=== PATIENT | male | born 1990 | race Caucasian/White ===

== ENCOUNTER → 2016-11-11 | Day surgery (SDC) | payer OTHER ==
[2016-11-01 15:06] VITALS: Ht 176.5 cm; Wt 104.5 kg
[~2016-11-11] VITALS: Ht 176.5 cm; Wt 104.5 kg
[~2016-11-11] MED LIST: ASPI325T45 PO; ATROPINE SULFATE 0.1 MG/ML 5ML SYR IV PRN; BUPIVACAINE/EPINEPHRINE 0.5% MPF 1:200,000 30 ML VIAL ONE; DEXAMETHASONE SOD INJ 4 MG/ML VIAL ONE; EpHEDrine SULFATE INJ 50 MG/ML AMP IV PRN; FENTANYL CITRATE INJ 50 MCG/1 ML 2 ML VIAL IV PRN; FENTANYL CITRATE INJ 50 MCG/1 ML 2 ML VIAL ONE; LACTATED RINGER'S 1000ML 1,000 ML IV SCH; LIDOCAINE HCL 1% 20 ML VIAL ONE; LIDOCAINE HCL 2% 2 ML VIAL (20MG/ML) ONE; MIDAZOLAM HCL 1 MG/ML 2ML VIAL ONE; MoRPHine SULFATE 2 MG/ML CARP IV PRN; MoRPHine SULFATE 4 MG/ML 1 ML CARP\\VIAL IV PRN; ONDANSETRON INJ 2 MG/ML 2 ML VIAL IV PRN; ONDANSETRON INJ 2 MG/ML 2 ML VIAL ONE; OXYC-57 PO; OXYCODONE/ACETAMINOPHEN 5-325 TAB PO PRN; PROPOFOL IV EMULSION 10 MG/ML 20 ML VIAL IV ONE; SULF800T23 PO
[2016-11-11] MEDS: CLINDAMYCIN PHOS 150 MG/ML 2 ML VIAL IV SCH ×2 (09:20→09:22)
--- NOTE | 2016-11-11 09:28 | History & Physical Bridge - [place] ---
H&P Re-Evaluation Bridge Note: I have examined the patient, reviewed the History & Physical and in the interval since the performance of the History & Physical I have noted the following changes of clinical significance: No changes noted
--- NOTE | 2016-11-11 10:38 | [facility] Post Operative Brief Note ---
Immediate Operative Summary Operative Date Nov 11, 2016. Pre-Operative Diagnosis Left Lower Extremity Hematoma/Seroma Post-Operative Diagnosis same Procedure(s) Performed Left Lower Extremity Irrigation And Debridement Surgeon Dr. Colin Heaton Tank Builder And Erector Surgeon(s) Kendrick Garcia PA-C, Lio Vasquez, MSIII Estimated Blood Loss 12 Findings Scar Tissue, min. fluid. Fluids (cc crystalloids) 1200 Specimens A.C&S Left Lower Extremity--Culturette--C&S, Gram Stain,White Count B. C&S Left Lower Extremity--Syringe--C&S,Gram Stain, White Count C. Tissue Culture Left Lower Extremity--C&S, Gram Stain, White Count Drains n/a Anesthesia Local + sedation Complication(s) None Disposition Recovery Room / PACU (Stable)
--- NOTE | 2016-11-11 10:39 | [facility] Operative Report ---
Operative Report Operative Date Nov 11, 2016. Pre-Operative Diagnosis Left Lower Extremity Hematoma/Seroma Post-Operative Diagnosis same Procedure(s) Performed Left Lower Extremity Irrigation And Debridement Surgeon Dr. Colin Heaton Highway Maintenance Supervisor Surgeon(s) Kendrick Garcia PA-C, CYNDI Beaver (No fellow avial) Estimated Blood Loss 12 Findings Scar tissue and min. fluid. Fluids (cc crystalloids) 1200 Specimens A.C&S Left Lower Extremity--Culturette--C&S, Gram Stain,White Count B. C&S Left Lower Extremity--Syringe--C&S,Gram Stain, White Count C. Tissue Culture Left Lower Extremity--C&S, Gram Stain, White Count Drains n/a Anesthesia Local + sedation Complication(s) None Disposition Recovery Room / PACU (Stable) Implants n/a Indications The patient is a pleasant 26-year-old male, who has a chronic painful, reaccumulating seroma/hematoma of the left lower leg. The patient understands the risks of surgery, which include but are not limited to: bleeding, infection , re-operation, damage to nerves and arteries, continued pain, reaccumulation, possible need for repeat surgery, and DVT. The patient understands all of these instructions and explanations, all of their questions have been satisfactorily addressed. The patient has elected to proceed with surgery and the informed consent was signed. Description of Procedure The patient was taken to the Operating Room and placed in the supine position on the operating table. After local sedation had taken an appropriate affect, a multidisciplinary time-out was performed identifying my initials on the left limb as the correct and operative limb. 600 mg of clindamycin were given prior to any incision being made. The left leg was prepped and draped in the usual Orthopaedic sterile fashion. The patient's medial calf swelling and prominence was identified and a 5 cm incision was marked over this area of concern. The skin edges were injected with a 50:50 mixture of 1% lidocaine and 0.5 % Marcaine with epi for a total of 10cc. the incision was made with the scalpel and significant scar tissue was noted immediately below the subcutaneous and within the subcutaneous fat. There was small amount of fluid, but no discrete pocket. The incision was carried down through the skin and subcutaneous fat, scar tissue to the level of the fascia. Cultures were obtained. The scar tissue was bluntly dissected and sharply excised with scalpel and electrocautery. Curettes were also used to remove any scar and freshen up the underlying soft tissues. The wound was copiously irrigated with 6 L normal saline. Following irrigation and debridement there was healthy viable red beefy tissue that was bleeding. The skin were closed with 3-0 Prolene. The wound was covered Xerofoam, 4 x 4's , ABDs, sterile cast padding, and an BETHANY bandaging and a compressive dressing. The sponge and needle counts were correct. POST-OP: Patient will be weightbearing as tolerated. Prophylactically he was placed on Bactrim DS for 5 days. He will follow-up with Dr. Heaton in 7-10 days. I attest to the content of the Intraoperative Record and any orders documented therein. Any exceptions are noted below.
--- NOTE | 2016-11-11 10:53 | [facility] Operative Report ---
Operative Report Operative Date Nov 11, 2016. Pre-Operative Diagnosis Left Lower Extremity Hematoma/Seroma Post-Operative Diagnosis same Procedure(s) Performed Left Lower Extremity Irrigation And Debridement Surgeon Dr. Colin Heaton Campground Cleaning Attendant Surgeon(s) Kendrick Garcia PA-C, Lio Vasquez, MSIII Estimated Blood Loss 12 Findings same Fluids (cc crystalloids) 1200 Specimens A.C&S Left Lower Extremity--Culturette--C&S, Gram Stain,White Count B. C&S Left Lower Extremity--Syringe--C&S,Gram Stain, White Count C. Tissue Culture Left Lower Extremity--C&S, Gram Stain, White Count Drains none Anesthesia sedation Complication(s) None Disposition Recovery Room / PACU Implants none Indications continued swelling a injury site of left lower extremity, MRI obtained, conservative treatments failed, surgery recommended, consents signed. Description of Procedure taken to the OR, prepped and draped, I was present the entire case, please see Dr. Heaton's op note for further detail I attest to the content of the Intraoperative Record and any orders documented therein. Any exceptions are noted below.
[2016-11-11 10:56] VITALS: TEMP 36.5
--- NOTE | 2016-11-11 10:56 | Discharge Instructions-SurgCtr ---
Discharge Instructions Visit Reason for Visit: Left Lower Leg Hematoma/Seroma Discharge Discharge Diagnosis / Problem: s/p left lower extremity I&D Discharge Goals Goal(s): Decrease discomfort, Improve function, Increase independence Activity Recommendations Activity Limitations: as noted below Lifting Limitations: no more than 10 pounds Exercise/Sports Limitations: none May Resume Sexual Activity: when tolerated Shower/Bathe: keep incision dry Driving or Machine Use: once no longer using narcotic pain medication Weightbearing Status: Left weightbearing (as tolerated) Anesthesia . Post Anesthesia Instructions: If you have had General Anesthesia or IV Sedation: * Do not drive today. * Resume driving when surgeon permits. * Do not make important decisions or sign legal documents today. * Call surgeon for: 1. Temperature elevations greater than 101 degrees F. 2. Uncontrollable pain. 3. Excessive bleeding. 4. Persistent nausea and vomiting. 5. Medication intolerance (nausea, vomiting or rash). * For nausea and vomiting use only clear liquids such as: tea, soda, bouillon until nausea subsides, then gradually increase diet as tolerated. * If you have any concerns or questions, call your surgeon's office. If physician is unavailable and it is an emergency, call 911 or go to the nearest emergency room. . Instructions / Follow-Up Instructions / Follow-Up DIET: * Resume previous diet. MEDICATIONS: * Please take your prescriptions as instructed at your pre-op appointment and/ or see medication discharge instructions listed above. * If concerns develop, call your physician's office at . SPECIAL CARE INSTRUCTIONS: * Ice/Elevate as instructed. * Keep dressing clean, dry, intact. * Your surgical extremity may be discolored due to prepping agents used on the skin. A bluish-green tint is a normal variant and should not cause alarm. Call your doctor at [phone] if: * Temperature above 101 degrees * Pain not relieved by pain medicine ordered * There is increased drainage or redness from any incision * You have any unanswered questions, problems or concerns. FOLLOW UP VISIT: * If not already scheduled, please call the office at to schedule a follow-up appointment. Diet Recommendations Home Diet: resume previous diet Procedures Procedures Performed: Left Lower Extremity Irrigation And Debridement Pending Studies Studies pending at discharge: yes List of pending studies: left lower extremity cultures and sensitivity, aerobic/anaerobic, gram stain, white count Medical Emergencies . Who to Call and When: Medical Emergencies: If at any time you feel your situation is an emergency, please call 911 immediately. . Non-Emergent Contact Non-Emergency issues call your: Primary Care Provider . . "Provider Documentation" section prepared by Kendrick Garcia. PA Drug Monitoring Program Search Results: no issues identified
--- NOTE | 2016-11-11 11:02 | Anesthesia Progress Nt - [facility] ---
Anesthesia Post Op Note Date & Time Nov 11, 2016 at 11:01 Vital Signs Pain Intensity: 2 Vital Signs Past 12 Hours Date Time Temp Pulse Resp B/P Pulse Ox O2 Delivery O2 Flow Rate FiO2 11/11/16 10:56 36.5 18 111/71 97 Room Air 11/11/16 08:05 36.7 85 16 137/80 96 Room Air Notes Mental Status: alert / awake / arousable, participated in evaluation Pt Amnestic to Procedure: Yes Nausea / Vomiting: adequately controlled Pain: adequately controlled Airway Patency, RR, SpO2: stable & adequate BP & HR: stable & adequate Hydration State: stable & adequate Anesthetic Complications: no major complications apparent
[2016-11-11 11:30] VITALS: BP 115/81; PULSE 80; O2SAT 97
== END | disposition home or self-care (01) ==
LOC: X.SURG 07:53
PROVIDERS: ATTEND Orthopaedic Surgery Sports Medicine
DX: S80.12XA Contusion of left lower leg, initial encounter (principal); W17.89XA Other fall from one level to another, initial encounter; Y92.89 Other specified places as the place of occurrence of the external cause

== ENCOUNTER → 2017-06-05 | Outpatient (CLI) | payer OTHER ==
[~2017-06-05] MED LIST changes: -ATROPINE SULFATE 0.1 MG/ML 5ML SYR IV PRN; -BUPIVACAINE/EPINEPHRINE 0.5% MPF 1:200,000 30 ML VIAL ONE; -DEXAMETHASONE SOD INJ 4 MG/ML VIAL ONE; -EpHEDrine SULFATE INJ 50 MG/ML AMP IV PRN; -FENTANYL CITRATE INJ 50 MCG/1 ML 2 ML VIAL IV PRN; -FENTANYL CITRATE INJ 50 MCG/1 ML 2 ML VIAL ONE; -LACTATED RINGER'S 1000ML 1,000 ML IV SCH; -LIDOCAINE HCL 1% 20 ML VIAL ONE; -LIDOCAINE HCL 2% 2 ML VIAL (20MG/ML) ONE; -MIDAZOLAM HCL 1 MG/ML 2ML VIAL ONE; -MoRPHine SULFATE 2 MG/ML CARP IV PRN; -MoRPHine SULFATE 4 MG/ML 1 ML CARP\\VIAL IV PRN; -ONDANSETRON INJ 2 MG/ML 2 ML VIAL IV PRN; -ONDANSETRON INJ 2 MG/ML 2 ML VIAL ONE; -OXYCODONE/ACETAMINOPHEN 5-325 TAB PO PRN; -PROPOFOL IV EMULSION 10 MG/ML 20 ML VIAL IV ONE
== END | disposition home or self-care (01) ==
LOC: C.RDSM 11:57
PROVIDERS: ATTEND Orthopaedic Surgery Sports Medicine
DX: M79.662 Pain in left lower leg (principal)

== ENCOUNTER 2017-06-06 13:04 | Inpatient (IN) | payer OTHER ==
[~2017-06-06] VITALS: Ht 176.5 cm; Wt 99.8 kg
[~2017-06-06 13:04] MED LIST changes: -OXYC-57 PO; -SULF800T23 PO
[2017-06-06] MEDS ORDERED: D5W AND 1/2NSS 1,000 ML IV SCH (13:20)
[2017-06-06] MEDS ORDERED: OXYCODONE/ACETAMINOPHEN 5-325 TAB PO PRN (13:30)
[2017-06-06] MEDS ORDERED: ONDANSETRON INJ 2 MG/ML 2 ML VIAL IV PRN ×3 (13:30→18:15)
[2017-06-06] MEDS ORDERED: ACETAMINOPHEN 325 MG TAB PO PRN (13:30)
--- NOTE | 2017-06-06 13:45 | History and Physical ---
History & Physical Date & Time of Service: Jun 06, 2017 at 13:26 Chief Complaint: Left Tibial Infection Primary Care Physician: No Doctor, Assigned History of Present Illness Source: patient Patient is a 26 year old male, who was seen and evaluated by Dr. Heaton on for left leg tibial swelling and pain. He underwent an aspiration, cultures obtained and sent to lab. He called in to the office today with worsening pain , swelling, redness and chills. He was instructed to come to the office immediately. He was seen and evaluated by Dr. Heaton. His symptoms returned overnight and the swelling had worsened. It was recommended for a direct admission to undergo and Incision and drainage of his left tibia later today. He did have pizza around 11 am this morning. He denies fever or chills. States that he does have some pain, denies pain or swelling anywhere else. States that this stated on Friday and has progressively worsened each day. He was prescribed antibiotics yesterday, but he wasn't able to pick them up yet and hasn't started them. Due to his worsening symptoms, it was decided that we would admit for an Incision and drainage later today. He will be kept NPO. Social History Smoking Status: Never Smoker Smokeless Tobacco Use: No Alcohol Use: socially Drug Use: none Marital Status: single Housing status: lives with roommate Occupational Status: employed (working on his [employer]) Allergies Coded Allergies: Cefaclor (Verified Allergy, Unknown, RASH, 11/11/16) Home Medications Scheduled Aspirin (Aspirin), 325 MG PO Q12 Review of Systems Constitutional: + chills, No fever, No weight loss Eyes: No worsening of vision ENT: No hearing loss, No sore throat, No dental problems Respiratory: No cough, No sputum, No wheezing, No shortness of breath Cardiovascular: No chest pain, No edema, No palpitations Abdomen: No pain, No nausea, No vomiting, No diarrhea, No constipation Musculoskeletal: + swelling, + calf pain Genitourinary - Male: No hematuria, No dysuria, No urinary frequency, No urinary retention, No urinary incontinence Neurologic: No memory loss, No numbness/tingling Endocrine: No fatigue Hematologic / Lymphatic: No abnormal bleeding/bruising, No clotting problems Integumentary: No rash, No itch Physical Exam General Appearance: WD/WN, no apparent distress Head: normocephalic, atraumatic Eyes: normal inspection, PERRL, EOMI ENT: normal ENT inspection, hearing grossly normal, TMs normal Neck: supple, no carotid bruits, trachea midline Respiratory/Chest: chest non-tender, lungs clear, normal breath sounds, no respiratory distress, no accessory muscle use Cardiovascular: regular rate, rhythm, no edema, normal peripheral pulses Abdomen/GI: normal bowel sounds, non tender, soft Extremities/Musculoskelatal: no calf tenderness, normal capillary refill, normal range of motion, + pertinent finding (localized swelling, erythema, swelling left anterior medial aspect left tibia. Full knee and ankle ROM. tender to palpation. Mild fluctuance. No ecchymosis. NO skin breakdown. Previous aspiration site noted. Ambulates normal with no assistive device, mild distal edema.) Neurologic/Psych: no motor/sensory deficits, alert, normal mood/affect, oriented x 3 Skin: normal color, warm/dry, no rash Diagnostics Laboratory Results CBC normal from 06/05/17 ESR 12 CRP > 15.0 preliminary culture results show 2+ presumptive staph aureus Impression Assessment and Plan Assessment: Infection left tibia Plan: Admit Plan for Incision and drainage left tibia today with Dr. Heaton. Made NPO. Will put on IV Vanco after intra-operative cultures obtained. Teds/foot pumps on RLE Activity as tolerated, WBAT LLE ICe and elevate as needed for pain/swelling Informed consent obtained by Dr. Heaton. Risks/complications discussed. Plan for home at discharge ID consult post operatively Level of Care Med/Surg VTE Prophylaxis VTE Risk Assessment Done? Y/N: No
[2017-06-06 15:09] VITALS: BP 115/73; PULSE 59; TEMP 36.8; O2SAT 98
[2017-06-06] MEDS ORDERED: BUPIVACAINE 0.5 % 5 MG/1 ML MPF 30ML VIAL ONE (15:26)
[2017-06-06] MEDS ORDERED: LIDOCAINE/EPINEPHRINE 1% 20 ML VIAL ONE (15:26)
[2017-06-06] MEDS ORDERED: BACITRACIN 50000 UNIT VIAL ONE (15:54)
[2017-06-06] MEDS ORDERED: MIDAZOLAM HCL 1 MG/ML 2ML VIAL ONE (17:06)
[2017-06-06] MEDS ORDERED: FENTANYL CITRATE INJ 50 MCG/1 ML 2 ML VIAL ONE ×2 (17:07→17:14)
[2017-06-06] MEDS ORDERED: POVIDONE-IODINE OP SOLN 30 ML BTL ONE (17:29)
[2017-06-06] MEDS ORDERED: VANCOMYCIN INJ 1,500 MG in SODIUM CHLORIDE 0.9% 500ML 500 ML IV SCH (17:30)
[2017-06-06] MEDS ORDERED: HYDROmorphone INJ 2 MG/ML SYR/VIAL ONE (17:35)
[2017-06-06] MEDS ORDERED: MoRPHine SULFATE 2 MG/ML CARP IV PRN (17:45)
[2017-06-06] MEDS ORDERED: OXYCODONE HCL IR 5 MG TAB (IMMEDIATE RELEASE) PO PRN (17:45)
[2017-06-06] MEDS ORDERED: ALUMINUM/MAGNESIUM/SIMETH (MAALOX MAX) 30 ML UDC PO PRN (17:45)
[2017-06-06] MEDS ORDERED: METOCLOPRAMIDE HCL INJ 5 MG/ML 2 ML VIAL IV PRN (17:45)
[2017-06-06] MEDS ORDERED: PROMETHAZINE HCL INJ 12.5 MG in SODIUM CHLORIDE 0.9% 50ML 50 ML IV PRN (18:15)
[2017-06-06] MEDS ORDERED: EpHEDrine SULFATE INJ 50 MG/ML AMP IV PRN (18:15)
[2017-06-06] MEDS ORDERED: VANCOMYCIN CONSULT ACTIVE PRN (18:15)
[2017-06-06] MEDS ORDERED: NALOXONE HCL 0.4 MG/1 ML VIAL/CARP IV PRN (18:15)
[2017-06-06] MEDS ORDERED: ATROPINE SULFATE 0.1 MG/ML 5ML SYR IV PRN (18:15)
[2017-06-06] MEDS ORDERED: FLUMAZENIL 0.1 MG/1 ML 10 ML VIAL IV PRN (18:15)
[2017-06-06] MEDS ORDERED: HYDROmorphone INJ 1 MG/ML SYR IV PRN (18:15)
--- NOTE | 2017-06-06 18:52 | [facility] Operative Report ---
Operative Report Operative Date Jun 06, 2017. Pre-Operative Diagnosis Soft tissue Infection, Left Lower Leg Post-Operative Diagnosis same as preop Procedure(s) Performed Irrigation and Debridement Left Lower Leg Surgeon Robert Heaton MD Senior Functional Analyst Surgeon(s) Otis Thomas MD Estimated Blood Loss 15mL Findings Large pocket of purulent fluid subcutaneous to the level of the periosteum. No apparent cortical breach of the Tibia. Fluids 1000 Specimens Microbiology: 1. Left leg gram stain, culture and sensitivity, aerobic and anaerobic. Permanent: A. Soft tissue left lower leg Drains n/a Anesthesia GET Complication(s) None Disposition Recovery Room / PACU (Stable) Indications The patient he is a 26-year-old male who has had chronic swelling and increased erythema of the left lower leg that was aspirated yesterday and through Gram stain was noted to have gram-positive cocci. The patient had undergone a previous I&D of the left lower leg roughly 8 months ago for a hematoma/seroma. Despite the recent aspiration the erythema has worsened as well as the swelling. The patient was admitted to the hospital for IV antibiotics and an irrigation and debridement of the left lower leg. The patient understands the risks of surgery, which include but are not limited to: bleeding, infection, re- operation, damage to nerves and arteries, continued pain and DVT. The patient understands all of these instructions and explanations, all of their questions have been satisfactorily addressed. The patient has elected to proceed with surgery and the informed consent was signed. Description of Procedure The patient was taken to the Operating Room and placed in the supine position on the operating table. After general anesthetic was administered a multidisciplinary time-out was performed identifying my initials on the left limb as the correct and operative limb. Antibiotics were held until cultures were obtained and then 1.5 grams of intravenous vancomycin was given. The left leg was prepped and draped in the usual Orthopaedic sterile fashion. The patient's previous incision along the medial aspect of the left lower leg along with proximal and distal extension that would allow for exposure of the area of swelling/concern. The skin incision was approximately 17 cm. The skin edges were injected with a 50:50 mixture of 1% lidocaine and 0.5 % Marcaine with epi for a total of 10 cc. The skin was incised and carried down through the soft tissue and scar to the level of the fascia and tibia. Blunt dissection was carried laterally and anteriorly over the tibia when the fluid collection was encountered that appeared purulent. Cultures were obtained as well as sending some fibrinous devitalized material for permanent section with pathology. At this point the vancomycin was given to the patient. The devitalized, necrotic soft tissue was removed with a combination of sharp dissection with the scalpel, curette, the Versajet, rongeur. The wound was copiously irrigated with 3 L normal saline. Followed by Betadine ophthalmic solution. Repeat debridement with curettes and versus just as well as rongeur was performed. An additional 3 L of normal saline was used to copiously irrigate the wound. Following irrigation and debridement there was healthy viable bleeding soft tissue. A large Hemovac drain was placed. The skin were closed with 0 & 3-0 Prolene using vertical mattress sutures. The wound was covered Xerofoam, 4 x 4's, ABDs, sterile cast padding, and an BETHANY. The sponge and needle counts were correct. POST-OP: Patient will be admitted and continued on IV Vancomycin until seen by Dr. Llanos. The patient is weightbearing as tolerated. Contact precautions will be followed. He will be given pain medicine to control his pain. I attest to the content of the Intraoperative Record and any orders documented therein. Any exceptions are noted below.
[2017-06-06] MEDS ORDERED: LIDOCAINE HCL 2% 2 ML VIAL (20MG/ML) ONE (18:58)
[2017-06-06] MEDS ORDERED: SUCCINYLCHOLINE CHLORIDE 20 MG/ML 10 ML VIAL IV ONE (18:58)
[2017-06-06] MEDS ORDERED: ONDANSETRON INJ 2 MG/ML 2 ML VIAL ONE (18:58)
[2017-06-06] MEDS ORDERED: DEXAMETHASONE SOD INJ 4 MG/ML VIAL ONE (18:58)
[2017-06-06] MEDS ORDERED: PROPOFOL IV EMULSION 10 MG/ML 20 ML VIAL IV ONE (18:58)
--- NOTE | 2017-06-06 19:27 | Pharmacy Progress Note ---
Pharmacy Antibiotic Consult Date of Service: Jun 06, 2017. Pharmacy Dosing Scope Pharmacy is consulted to initiate vancomycin IV dosing therapy, order appropriate labs and adjust drug dose/frequency. Subjective The patient is a 26 year old male admitted on Jun 06, 2017 at 14:40. Objective Lab Results (24hrs): Test 06/06/17 18:41 Assessment & Plan Assessment * 26 yo M with bone/joint infection s/p I&D in OR today. * Vancomycin started in OR - dosed 15 mg/kg * Patient expected to have excellent clearance of vancomycin 2nd age (SCr pending - anticipate < 1.0 mg/dL) * Will schedule further vancomycin aggressively due to likely significant clearance. Will order ongoing at 15 mg/kg IV q8h * Will follow intra-operative cultures * Trough prior to 4th overall dose Plan * Vancomycin 1500 mg IV q8h * Trough 06/07 @ 1530 Pharmacy will continue to follow and will adjust dose/frequency as necessary. Thank you
--- NOTE | 2017-06-06 19:44 | Anesthesiology Progress Note ---
Anesthesia Post Op Note Date & Time Jun 06, 2017 at 19:44 Vital Signs Pain Intensity: 4 Vital Signs Past 12 Hours Date Time Temp Pulse Resp B/P (MAP) Pulse Ox O2 Delivery O2 Flow Rate FiO2 06/06/17 19:36 89 20 06/06/17 19:36 85 20 96 06/06/17 19:35 131/77 06/06/17 19:31 83 26 97 06/06/17 19:31 84 26 06/06/17 19:30 128/80 06/06/17 19:28 91 19 06/06/17 19:28 91 19 100 06/06/17 19:26 130/89 06/06/17 19:23 90 16 100 06/06/17 19:23 89 16 06/06/17 19:21 136/97 06/06/17 19:18 89 24 100 06/06/17 19:18 88 24 06/06/17 19:15 126/79 06/06/17 19:13 87 15 100 06/06/17 19:13 87 15 06/06/17 19:11 123/69 06/06/17 19:08 36.0 94 16 135/75 100 Oxymask 10 06/06/17 19:08 94 25 06/06/17 19:08 95 25 135/75 100 06/06/17 15:09 36.8 59 18 115/73 (87) 98 Room Air Notes Mental Status: alert / awake / arousable, participated in evaluation Pt Amnestic to Procedure: Yes Nausea / Vomiting: adequately controlled Pain: adequately controlled Airway Patency, RR, SpO2: stable & adequate BP & HR: stable & adequate Hydration State: stable & adequate Anesthetic Complications: no major complications apparent
[2017-06-06 20:15] VITALS: BP 126/82; PULSE 73; PULSE 79; TEMP 36.5; O2SAT 93; O2SAT 99; Ht 176.5 cm; Wt 99.8 kg
[2017-06-06 20:45] VITALS: BP 123/74; PULSE 77; TEMP 36.4; O2SAT 96
[2017-06-06] MEDS ORDERED: DOCUSATE SODIUM 100 MG CAP PO SCH (21:00)
[2017-06-06 21:15] VITALS: BP 126/85; PULSE 70; TEMP 36.4; O2SAT 96
[2017-06-06] MEDS: D5W AND 1/2NSS + 20MEQ KCL 1,000 ML IV SCH (21:30)
[2017-06-06] MEDS: ASPIRIN 325 MG ECTAB PO SCH (21:33)
[2017-06-06] MEDS: DOCUSATE SODIUM 100 MG CAP PO SCH (21:33)
[2017-06-06] MEDS: ACETAMINOPHEN 500 MG TAB PO SCH (21:34)
[2017-06-06 22:15] VITALS: BP 137/84; PULSE 68; TEMP 36.5; O2SAT 97
[2017-06-06 23:13] VITALS: BP 112/72; PULSE 65; TEMP 36.4; O2SAT 96
[2017-06-06] MEDS: VANCOMYCIN INJ 1,500 MG in SODIUM CHLORIDE 0.9% 500ML 500 ML IV SCH (23:24)
[2017-06-07 03:01] VITALS: BP 108/70; PULSE 50; TEMP 36.3; O2SAT 96
[2017-06-07] MEDS: ACETAMINOPHEN 500 MG TAB PO SCH ×3 (05:45→21:25)
[2017-06-07] MEDS: D5W AND 1/2NSS + 20MEQ KCL 1,000 ML IV SCH ×2 (05:49→16:30)
[2017-06-07] MEDS ORDERED: VANCOMYCIN INJ 1,500 MG in SODIUM CHLORIDE 0.9% 500ML 500 ML IV SCH (06:00)
[2017-06-07 06:06] LABS: HEMATOCRIT 39.8 % (42-52); MEAN CELL VOLUME 86.5 fL (80-100); MEAN CORPUSCULAR HEMOGLOBIN 27.8 pg (25-34); MEAN CORPUSCULAR HGB CONC 32.2 g/dl (32-36); MEAN PLATELET VOLUME 10.9 fL (7.4-10.4); PLATELET COUNT 221 K/uL (130-400)
[2017-06-07 06:38] LABS: BLOOD UREA NITROGEN 9 mg/dl (7-18); BUN/CREATININE RATIO 12.7 (10-20); CALCIUM 8.9 mg/dl (8.5-10.1); CARBON DIOXIDE 25 mmol/L (21-32); CHLORIDE 106 mmol/L (98-107); CREATININE 0.71 mg/dl (0.60-1.40); GLUCOSE 153 mg/dl (70-99); POTASSIUM 4.5 mmol/L (3.5-5.1); SODIUM 139 mmol/L (136-145)
[2017-06-07 07:03] VITALS: BP 102/62; PULSE 63; TEMP 36.5; O2SAT 99
[2017-06-07] MEDS: VANCOMYCIN INJ 1,500 MG in SODIUM CHLORIDE 0.9% 500ML 500 ML IV SCH (07:11)
[2017-06-07] MEDS: DOCUSATE SODIUM 100 MG CAP PO SCH ×2 (08:32→20:26)
[2017-06-07] MEDS: ASPIRIN 325 MG ECTAB PO SCH ×2 (08:33→20:26)
[2017-06-07] MEDS: MULTIVITAMIN TAB PO SCH (08:33)
[2017-06-07] MEDS: PANTOprazole SOD 40 MG TAB PO SCH (08:33)
--- NOTE | 2017-06-07 08:47 | Orthopedic Progress Note ---
Orthopedic Progress Note Date of Service Jun 07, 2017. Subjective Post OP Day: 1 Reports: complaints (some discomfort in the LLL. Only using Tylenol for pain.) , pain controlled w PO medications Objective calves soft nontender, N/V intact, dressing C/D/I, A&O x3 Date Time Temp Pulse Resp B/P (MAP) Pulse Ox O2 Delivery O2 Flow Rate FiO2 06/07/17 07:42 Room Air 06/07/17 07:03 36.5 63 14 102/62 (75) 99 Room Air 06/07/17 03:01 36.3 50 16 108/70 (83) 96 Room Air 06/06/17 23:30 Room Air 06/06/17 23:13 36.4 65 16 112/72 (85) 96 Room Air 06/06/17 22:15 36.5 68 18 137/84 (101) 97 Room Air 06/06/17 21:15 36.4 70 18 126/85 (99) 96 Room Air Free Flow/Blowby 06/06/17 20:45 36.4 77 18 123/74 (90) 96 Room Air 06/06/17 20:15 36.5 73 18 126/82 (97) 99 Room Air 06/06/17 20:15 36.5 73 16 126/82 06/06/17 20:15 Room Air 06/06/17 20:15 36.5 79 18 126/82 (97) 93 Room Air 06/06/17 20:15 93 Room Air 06/06/17 20:03 74 19 06/06/17 20:03 74 19 91 06/06/17 20:00 127/76 06/06/17 19:58 79 17 92 06/06/17 19:58 79 17 06/06/17 19:53 77 34 06/06/17 19:53 78 34 95 06/06/17 19:48 79 27 06/06/17 19:48 78 27 94 06/06/17 19:47 77 21 94 06/06/17 19:47 78 21 06/06/17 19:45 36.2 79 20 132/79 93 Room Air 10 06/06/17 19:45 132/79 06/06/17 19:42 81 22 94 06/06/17 19:42 81 22 06/06/17 19:40 131/80 06/06/17 19:37 80 21 96 06/06/17 19:37 81 21 06/06/17 19:36 89 20 06/06/17 19:36 85 20 96 06/06/17 19:35 131/77 06/06/17 19:31 83 26 97 06/06/17 19:31 84 26 06/06/17 19:30 128/80 06/06/17 19:28 91 19 06/06/17 19:28 91 19 100 06/06/17 19:26 130/89 06/06/17 19:23 90 16 100 06/06/17 19:23 89 16 06/06/17 19:21 136/97 06/06/17 19:18 89 24 100 06/06/17 19:18 88 24 06/06/17 19:15 126/79 06/06/17 19:13 87 15 100 06/06/17 19:13 87 15 06/06/17 19:11 123/69 06/06/17 19:08 36.0 94 16 135/75 100 Oxymask 10 06/06/17 19:08 94 25 06/06/17 19:08 95 25 135/75 100 06/06/17 15:09 36.8 59 18 115/73 (87) 98 Room Air Laboratory Results 24 Hours: Date/Time Source Procedure Growth Status 06/06/17 00:00 Drainage-Deep Leg Gram Stain - Final FEW WBCs SEEN MODERATE GRAM POSITIVE COCCI RARE EPITHELIAL CELLS 06/06/17 00:00 Drainage-Deep Leg Bacterial Culture Pending Last 24 Hours Test 06/06/17 19:20 06/07/17 05:23 Creatinine 0.80 mg/dl 0.71 mg/dl Estimated GFR () 144.9 > 150.0 Estimated GFR (Non- 125.0 131.3 White Blood Count 7.00 K/uL Red Blood Count 4.60 M/uL Hemoglobin 12.8 g/dL Hematocrit 39.8 % Mean Corpuscular Volume 86.5 fL Mean Corpuscular Hemoglobin 27.8 pg Mean Corpuscular Hemoglobin Concent 32.2 g/dl RDW Standard Deviation 40.7 fL RDW Coefficient of Variation 12.7 % Platelet Count 221 K/uL Mean Platelet Volume 10.9 fL Sodium Level 139 mmol/L Potassium Level 4.5 mmol/L Chloride Level 106 mmol/L Carbon Dioxide Level 25 mmol/L Anion Gap 8.0 mmol/L Blood Urea Nitrogen 9 mg/dl Est Creatinine Clear Calc Drug Dose 188.4 ml/min BUN/Creatinine Ratio 12.7 Random Glucose 153 mg/dl Calcium Level 8.9 mg/dl Assessment & Plan Assessment: POD # 1 s/p I&D LLE, doing as well as expected. Plan: Continue IV Vanco for now per Pharmacy. Awaiting Cx & Sensitivities. Will follow labs. ID consulted for Abx coverage and duration of treatment. WBAT. PT/OT. Regular diet. Continue pain control. DVT prophylaxis: TEDs, foot pumps, ASA. D/C planning.
[2017-06-07 14:58] VITALS: BP 114/70; PULSE 78; TEMP 36.4; O2SAT 95
[2017-06-07] MEDS ORDERED: VANCOMYCIN TROUGH ONE (15:30)
--- NOTE | 2017-06-07 16:27 | Pharmacy Progress Note ---
Pharmacy Antibiotic Prog Note Date of Service Jun 07, 2017. Subjective The patient is currently receiving vancomycin 1500 mg IV every 8 hours. The patient is currently on day # 2 of vancomycin IV therapy. Objective Height (Feet): 5 Height (Inches): 9.50 Weight (Kilograms): 99.800 Lab Results (24hrs): Test 06/06/17 19:20 06/07/17 05:23 06/07/17 15:30 Creatinine 0.80 mg/dl (0.60-1.40) 0.71 mg/dl (0.60-1.40) Estimated GFR () 144.9 > 150.0 Estimated GFR (Non- 125.0 131.3 White Blood Count 7.00 K/uL (4.8-10.8) Red Blood Count 4.60 M/uL (4.7-6.1) Hemoglobin 12.8 g/dL (14.0-18.0) Hematocrit 39.8 % (42-52) Mean Corpuscular Volume 86.5 fL (80-100) Mean Corpuscular Hemoglobin 27.8 pg (25-34) Mean Corpuscular Hemoglobin Concent 32.2 g/dl (32-36) RDW Standard Deviation 40.7 fL (36.4-46.3) RDW Coefficient of Variation 12.7 % (11.5-14.5) Platelet Count 221 K/uL (130-400) Mean Platelet Volume 10.9 fL (7.4-10.4) Sodium Level 139 mmol/L (136-145) Potassium Level 4.5 mmol/L (3.5-5.1) Chloride Level 106 mmol/L (98-107) Carbon Dioxide Level 25 mmol/L (21-32) Anion Gap 8.0 mmol/L (3-11) Blood Urea Nitrogen 9 mg/dl (7-18) Est Creatinine Clear Calc Drug Dose 188.4 ml/min BUN/Creatinine Ratio 12.7 (10-20) Random Glucose 153 mg/dl (70-99) Calcium Level 8.9 mg/dl (8.5-10.1) Assessment & Plan Assessment * 26 yo M with bone/joint infection s/p I&D in OR yesterday (06/06) * Intra-operative cultures with Staph aureus (MSSA vs. MRSA and other sensitivities pending) - continue aggressive vancomycin * SCr stable and likely at/near baseline * Goal vancomycin trough 15-20 mcg/mL * Trough drawn today may be falsely low as the previous dose of vancomycin was administered ~50 minutes early (which may have a modest impact on level for a patient on q8h interval) * Trough level of 11.9 mcg/mL is subtherapeutic. Despite being a little falsely low, true level may not be greater than 15 mcg/mL. Will therefore increase dose slightly * Repeat trough prior to 4th dose of new regimen Plan * Increase vancomycin 1750 mg IV q8h * Trough 06/08 @ 1530 Pharmacy will continue to follow and will adjust dose/frequency as necessary. Thank you
[2017-06-07] MEDS ORDERED: VANCOMYCIN INJ 1,750 MG in SODIUM CHLORIDE 0.9% 500ML 500 ML IV STA (16:29)
--- NOTE | 2017-06-07 18:09 | Medical Consult ---
Consultation Date of Consultation: Jun 07, 2017. Attending Physician: Robert Heaton MD Reason for Consultation: left tibial infection, patient for I and D 06/06 History of Present Illness 26-year-old male in prior good health had injury to his left anterior tibial last year requiring operative incision and drainage of hematoma. Patient now presents with recurrent pain, swelling, and fever consistent with recurrent infection, and was seen in the orthopedic office and is now admitted for further management. He has undergone incision and drainage of left leg abscess , with cultures now growing Staph aureus, sensitivities pending. Patient currently being treated with IV vancomycin. Pain currently 2/10 in intensity. Tolerating antibiotic without apparent difficulty. 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[employer]) Allergies Coded Allergies: Cefaclor (Verified Allergy, Unknown, RASH, 11/11/16) Current Inpatient Medications Current Inpatient Medications Medications (Trade) Dose Ordered Sig/Kemi Route Start Time Stop Time Status Last Admin Dose Admin Ondansetron HCl (Zofran Inj) 4 mg Q6H PRN IV 06/06/17 13:30 07/06/17 13:29 Docusate Sodium (coLACE CAP) 100 mg BID PO 06/06/17 21:00 07/06/17 20:59 06/07/17 08:32 100 MG Aspirin (Ecotrin Tab) 325 mg Q12 PO 06/06/17 21:00 07/06/17 20:59 06/07/17 08:33 325 MG Potassium Chloride/Dextrose/ Sod Cl 1,000 ml @ 100 mls/hr Q10H IV 06/06/17 20:00 07/06/17 19:59 06/07/17 16:30 100 MLS/HR Oxycodone HCl (Roxicodone Immediate Rel Tab) 1-2 TABS FOR PAIN 1 TABLET ... Q4H PRN PO 06/06/17 17:45 06/20/17 17:44 Morphine Sulfate (MoRPHine SULFATE INJ) 2 mg Q2HWA PRN IV 06/06/17 17:45 06/20/17 17:44 Acetaminophen (Tylenol Tab) 1,000 mg Q8H PO 06/06/17 22:00 07/06/17 21:59 06/07/17 13:48 1,000 MG Diphenhydramine HCl (Benadryl Cap) 25 mg Q8H PRN PO 06/06/17 17:45 07/06/17 17:44 Al Hydrox/Mg Hydrox/Simethicone (Maalox Max Susp) 15 ml Q4H PRN PO 06/06/17 17:45 07/06/17 17:44 Multivitamins (Multivitamin Tab) 1 tab QAM PO 06/07/17 09:00 07/07/17 08:59 06/07/17 08:33 1 TAB Metoclopramide HCl (Reglan Inj) 10 mg Q6H PRN IV 06/06/17 17:45 07/06/17 17:44 Pantoprazole Sodium (Protonix Tab) 40 mg QAM PO 06/07/17 09:00 07/07/17 08:59 06/07/17 08:33 40 MG Vancomycin HCl (Consult) 1 ea UD PRN N/A 06/06/17 18:15 07/06/17 18:14 Vancomycin HCl 1750 mg/Sodium Chloride 535 ml @ 200 mls/hr NOW STAT IV 06/07/17 16:29 06/07/17 19:09 06/07/17 16:44 200 MLS/HR Vancomycin HCl 1750 mg/Sodium Chloride 535 ml @ 200 mls/hr Q8@0000,0800,1600 IV 06/08/17 00:00 07/20/17 00:00 Review of Systems Constitutional: + fever, + chills Eyes: No problem reported ENT: No problem reported Respiratory: No problem reported Cardiovascular: No problem reported Abdomen: No problem reported Musculoskeletal: + muscle pain, + swelling Genitourinary - Male: No problem reported Neurologic: No problem reported Psychiatric: No problem reported Hematologic / Lymphatic: No problem reported Integumentary: + new/changing skin lesions Allergic / Immunologic: No problem reported Physical Exam Date Time Temp Pulse Resp B/P (MAP) Pulse Ox O2 Delivery O2 Flow Rate FiO2 06/07/17 15:45 Room Air 06/07/17 14:58 36.4 78 16 114/70 (85) 95 Room Air 06/07/17 07:42 Room Air 8/19/17 07:03 36.5 63 14 102/62 (75) 99 Room Air 8/17 03:01 36.3 50 16 108/70 (83) 96 Room Air 18/17 23:30 Room Air 818/17 23:13 36.4 65 16 112/72 (85) 96 Room Air 81817 22:15 36.5 68 18 137/84 (101) 97 Room Air 1817 21:15 36.4 70 18 126/85 (99) 96 Room Air Free Flow/Blowby 17 20:45 36.4 77 18 123/74 (90) 96 Room Air 818/17 20:15 36.5 73 18 126/82 (97) 99 Room Air 18/17 20:15 36.5 73 16 126/82 18/17 20:15 Room Air 818/17 20:15 36.5 79 18 126/82 (97) 93 Room Air 06/06/17 20:15 93 Room Air 1817 20:03 74 19 18/17 20:03 74 19 91 18/17 20:00 127/76 18/17 19:58 79 17 92 18/17 19:58 79 17 18/17 19:53 77 34 18/17 19:53 78 34 95 18/17 19:48 79 27 /18/17 19:48 78 27 94 18/17 19:47 77 21 94 18/17 19:47 78 21 18/17 19:45 36.2 79 20 132/79 93 Room Air 10 18/17 19:45 132/79 818/17 19:42 81 22 94 818/17 19:42 81 22 8/18/17 19:40 131/80 818/17 19:37 80 21 96 818/17 19:37 81 21 818/17 19:36 89 20 8/18/17 19:36 85 20 96 8/18/17 19:35 131/77 818/17 19:31 83 26 97 8/18/17 19:31 84 26 8/18/17 19:30 128/80 818/17 19:28 91 19 8/18/17 19:28 91 19 100 06/06/17 19:26 130/89 06/06/17 19:23 90 16 100 06/06/17 19:23 89 16 06/06/17 19:21 136/97 06/06/17 19:18 89 24 100 06/06/17 19:18 88 24 06/06/17 19:15 126/79 06/06/17 19:13 87 15 100 06/06/17 19:13 87 15 06/06/17 19:11 123/69 06/06/17 19:08 36.0 94 16 135/75 100 Oxymask 10 06/06/17 19:08 94 25 06/06/17 19:08 95 25 135/75 100 General Appearance: WD/WN, no apparent distress Head: normocephalic, atraumatic Eyes: normal inspection, EOMI, sclerae normal ENT: normal ENT inspection, pharynx normal Neck: supple, no adenopathy, thyroid normal, trachea midline Respiratory/Chest: chest non-tender, lungs clear, normal breath sounds, no respiratory distress Cardiovascular: regular rate, rhythm, no gallop, no murmur Abdomen/GI: normal bowel sounds, non tender, soft, no organomegaly Back: normal inspection, no CVA tenderness Extremities/Musculoskelatal: no calf tenderness, normal capillary refill Neurologic/Psych: alert, oriented x 3 Skin: normal color, no rash, + pertinent finding ( Surgical dressing intact left leg) Lymphatic: no adenopathy Laboratory Results RUN DATE: 06/07/17 [facility] LAB PAGE 1 RUN TIME: 0900 Specimen Inquiry PATIENT: MINA SCHAFER LOC: KimCLIENT SERVICE SUPERVISOR U # : [id number] AGE/SX: 26/M ROOM: [facility] REG : 06/06/[address]: Robert Heaton MD : 1990 BED: 1 DIS : STATUS: ADM IN TLOC: SPEC #: [id number] NAS: 06/06/17-UNK STATUS: RES REQ #: [id number] RECD: 06/06/[address]: Robert Heaton MD SOURCE: DRAIN-DEEP ENTR: 06/06/[address]: Terrance Llanos MD SPDESC: LEG No Doctor, Assigned ORDERED: AER/SUZAN CULTSMR COMMENTS: SOURCE IS LEFT LEG. CALL STAT GRAM STAIN RESULTS TO 2908 Procedure Result Verified Site GRAM STAIN Final 06/07/17075 RESULT FEW WBCs SEEN MODERATE GRAM POSITIVE COCCI RARE EPITHELIAL CELLS OR AER/SUZAN CULT Preliminary 06/07/1709 Organism 1 STAPHYLOCOCCUS AUREUS QUANITY MANY SENS SENSITIVITY TO FOLLOW Last 24 Hours Test 06/06/17 19:20 06/07/17 05:23 06/07/17 15:30 Creatinine 0.80 mg/dl 0.71 mg/dl Estimated GFR () 144.9 > 150.0 Estimated GFR (Non- 125.0 131.3 White Blood Count 7.00 K/uL Red Blood Count 4.60 M/uL Hemoglobin 12.8 g/dL Hematocrit 39.8 % Mean Corpuscular Volume 86.5 fL Mean Corpuscular Hemoglobin 27.8 pg Mean Corpuscular Hemoglobin Concent 32.2 g/dl RDW Standard Deviation 40.7 fL RDW Coefficient of Variation 12.7 % Platelet Count 221 K/uL Mean Platelet Volume 10.9 fL Sodium Level 139 mmol/L Potassium Level 4.5 mmol/L Chloride Level 106 mmol/L Carbon Dioxide Level 25 mmol/L Anion Gap 8.0 mmol/L Blood Urea Nitrogen 9 mg/dl Est Creatinine Clear Calc Drug Dose 188.4 ml/min BUN/Creatinine Ratio 12.7 Random Glucose 153 mg/dl Calcium Level 8.9 mg/dl Vancomycin Level Trough 11.9 mcg/ml [~ rep ct add3]] LEFT TIBIA/FIBULA 2 VIEWS CLINICAL HISTORY: LEFT LOWER LEG SWELLING pain. Edema. COMPARISON: 06/05/2017 DISCUSSION: Considerable pretibial soft tissue edema. Apparent air within the soft tissues. This raises the possibility of an penetrating injury, necrotizing fasciitis, or air producing infection. The osseous structures appear to be intact within limitations of mild patient motion. IMPRESSION: 1. Considerable soft tissue swelling in a peritubular distribution 2. Air within the soft tissues raising the possibility of either penetrating type injury, air producing infection, versus Necrotizing fasciitis. 3. Follow-up is indicated Assessment & Plan abscess of left lower leg, status post incision and drainage, with cultures growing Staph aureus, sensitivities pending. agree with use of vancomycin pending final sensitivity results. Length of IV antibiotics will be determined by clinical response. Will follow.
[2017-06-07 23:32] VITALS: BP 112/66; PULSE 72; TEMP 36.6; O2SAT 96
[2017-06-07] MEDS: VANCOMYCIN INJ 1,750 MG in SODIUM CHLORIDE 0.9% 500ML 500 ML IV SCH (23:43)
[2017-06-08] MEDS: D5W AND 1/2NSS + 20MEQ KCL 1,000 ML IV SCH ×3 (02:31→22:04)
[2017-06-08 06:10] LABS: HEMATOCRIT 35.7 % (42-52); MEAN CORPUSCULAR HEMOGLOBIN 28.4 pg (25-34); MEAN CORPUSCULAR HGB CONC 33.1 g/dl (32-36); MEAN PLATELET VOLUME 10.5 fL (7.4-10.4); PLATELET COUNT 213 K/uL (130-400); RED BLOOD COUNT 4.15 M/uL (4.7-6.1); WHITE BLOOD COUNT 7.17 K/uL (4.8-10.8)
[2017-06-08] MEDS: ACETAMINOPHEN 500 MG TAB PO SCH ×3 (06:18→22:04)
[2017-06-08 06:46] LABS: BLOOD UREA NITROGEN 6 mg/dl (7-18); BUN/CREATININE RATIO 8.3 (10-20); CARBON DIOXIDE 26 mmol/L (21-32); CHLORIDE 111 mmol/L (98-107); CREATININE 0.69 mg/dl (0.60-1.40); GLUCOSE 126 mg/dl (70-99); SODIUM 143 mmol/L (136-145)
[2017-06-08 06:47] LABS: POTASSIUM 3.5 mmol/L (3.5-5.1)
[2017-06-08 07:28] VITALS: BP 115/70; PULSE 70; TEMP 36.4; O2SAT 97
[2017-06-08] MEDS: VANCOMYCIN INJ 1,750 MG in SODIUM CHLORIDE 0.9% 500ML 500 ML IV SCH ×3 (08:02→23:55)
[2017-06-08] MEDS: MULTIVITAMIN TAB PO SCH (08:03)
[2017-06-08] MEDS: DOCUSATE SODIUM 100 MG CAP PO SCH ×2 (08:03→20:53)
[2017-06-08] MEDS: PANTOprazole SOD 40 MG TAB PO SCH (08:03)
[2017-06-08] MEDS: ASPIRIN 325 MG ECTAB PO SCH ×2 (08:03→20:53)
[2017-06-08 15:12] VITALS: BP 128/74; PULSE 69; TEMP 36.7; O2SAT 98
[2017-06-08] MEDS ORDERED: VANCOMYCIN TROUGH ONE (15:30)
--- NOTE | 2017-06-08 16:25 | Pharmacy Progress Note ---
Pharmacy Antibiotic Prog Note Date of Service Jun 08, 2017. Subjective The patient is currently receiving vancomycin 1750 mg IV every 8 hours. The patient is currently on day # 3 of vancomycin IV therapy. Objective Height (Feet): 5 Height (Inches): 9.50 Weight (Kilograms): 99.800 Lab Results (24hrs): Test 06/08/17 05:52 06/08/17 15:19 White Blood Count 7.17 K/uL (4.8-10.8) Red Blood Count 4.15 M/uL (4.7-6.1) Hemoglobin 11.8 g/dL (14.0-18.0) Hematocrit 35.7 % (42-52) Mean Corpuscular Volume 86.0 fL (80-100) Mean Corpuscular Hemoglobin 28.4 pg (25-34) Mean Corpuscular Hemoglobin Concent 33.1 g/dl (32-36) RDW Standard Deviation 40.4 fL (36.4-46.3) RDW Coefficient of Variation 12.8 % (11.5-14.5) Platelet Count 213 K/uL (130-400) Mean Platelet Volume 10.5 fL (7.4-10.4) Sodium Level 143 mmol/L (136-145) Potassium Level 3.5 mmol/L (3.5-5.1) Chloride Level 111 mmol/L (98-107) Carbon Dioxide Level 26 mmol/L (21-32) Anion Gap 6.0 mmol/L (3-11) Blood Urea Nitrogen 6 mg/dl (7-18) Creatinine 0.69 mg/dl (0.60-1.40) Est Creatinine Clear Calc Drug Dose 193.8 ml/min Estimated GFR () > 150.0 Estimated GFR (Non- 132.9 BUN/Creatinine Ratio 8.3 (10-20) Random Glucose 126 mg/dl (70-99) Calcium Level 8.0 mg/dl (8.5-10.1) Assessment & Plan Assessment * 26 yo M with bone/joint infection s/p I&D in OR 06/06/17, on vancomycin monotherapy * Intra-operative cultures with Staph aureus - resulted as MSSA. * ID following - to determine appropriate de-escalation and length of therapy * SCr stable and likely at/near baseline * Goal vancomycin trough 15-20 mcg/mL * Trough of 18.7 mcg/mL is therapeutic. Will continue vancomycin at current dose * Will obtain relatively early repeat trough at ~48 hours as this dose is aggressive and want to ensure significant further accumulation does not occur Plan * Continue vancomycin 1750 mg IV q8h * Repeat trough 06/10 @ 0730 Pharmacy will continue to follow and will adjust dose/frequency as necessary. Thank you
--- NOTE | 2017-06-08 19:21 | Orthopedic Progress Note ---
Orthopedic Progress Note Date of Service Jun 08, 2017. Subjective Post OP Day: 2 Reports: pain controlled w PO medications Objective calves soft nontender, N/V intact, incision C/D/I, A&O x3 Date Time Temp Pulse Resp B/P (MAP) Pulse Ox O2 Delivery O2 Flow Rate FiO2 06/08/17 16:30 Room Air 06/08/17 15:12 36.7 69 18 128/74 (92) 98 Room Air 06/08/17 07:45 Room Air 06/08/17 07:28 36.4 70 14 115/70 (85) 97 Room Air 06/07/17 23:32 36.6 72 14 112/66 (81) 96 Room Air Laboratory Results 24 Hours: Last 24 Hours Test 06/08/17 05:52 06/08/17 15:19 White Blood Count 7.17 K/uL Red Blood Count 4.15 M/uL Hemoglobin 11.8 g/dL Hematocrit 35.7 % Mean Corpuscular Volume 86.0 fL Mean Corpuscular Hemoglobin 28.4 pg Mean Corpuscular Hemoglobin Concent 33.1 g/dl RDW Standard Deviation 40.4 fL RDW Coefficient of Variation 12.8 % Platelet Count 213 K/uL Mean Platelet Volume 10.5 fL Sodium Level 143 mmol/L Potassium Level 3.5 mmol/L Chloride Level 111 mmol/L Carbon Dioxide Level 26 mmol/L Anion Gap 6.0 mmol/L Blood Urea Nitrogen 6 mg/dl Creatinine 0.69 mg/dl Est Creatinine Clear Calc Drug Dose 193.8 ml/min Estimated GFR () > 150.0 Estimated GFR (Non- 132.9 BUN/Creatinine Ratio 8.3 Random Glucose 126 mg/dl Calcium Level 8.0 mg/dl Vancomycin Level Trough 18.7 mcg/ml SPEC #: [id number] NAS: 06/06/17-UNK STATUS: RES REQ #: [id number] RECD: 06/06/[address]: Robert Heaton MD SOURCE: DRAIN-DEEP ENTR: 06/06/[address]: Terarnce Llanos MD SPDESC: LEG No Doctor, Assigned ORDERED: AER/SUZAN CULTSMR COMMENTS: SOURCE IS LEFT LEG. CALL STAT GRAM STAIN RESULTS TO 2900 Procedure Result Verified Site GRAM STAIN Final 06/07/17075 RESULT FEW WBCs SEEN MODERATE GRAM POSITIVE COCCI RARE EPITHELIAL CELLS OR AER/SUZAN CULT Preliminary 06/08/17 Organism 1 STAPHYLOCOCCUS AUREUS QUANITY MANY SENS SENSITIVITY TO FOLLOW 1. STAPHYLOCOCCUS AUREUS Target Route Dose RX AB Cost M.I.C. IQ ------ ----- ------ -- ------ -------- - ------ TRIMET/SULFA S <=0.5/ 9.5 * OXACILLIN S 0.5 VANCOMYCIN S 1 ERYTHROMYCIN R >4 TETRACYCLINE S <=4 CLINDAMYCIN R <=0.5 DAPTOMYCIN S <=0.5 S = SENSITIVE I = INTERMEDIATE R = RESISTANT Assessment & Plan Assessment: POD # 2 s/p I&D LLE, for S. Aureus infection, doing as well as expected. Plan: Continue IV Vanco for now per Pharmacy. Cx & Sensitivities, awaiting ID recommendations for Abx coverage and duration of treatment, as the sensitivities were not available earlier today. Appreciate ID input. Will follow labs. Dressing changed 06/08/17. D/C HVAC 06/08/2017. WBAT. PT/OT. Regular diet. Continue pain control. DVT prophylaxis: TEDs, foot pumps, ASA. D/C planning.
[2017-06-08 23:13] VITALS: BP 132/75; PULSE 57; TEMP 36.6; O2SAT 98
[2017-06-09] MEDS: ACETAMINOPHEN 500 MG TAB PO SCH (05:40)
[2017-06-09 07:03] VITALS: BP 115/70; PULSE 56; TEMP 36.5; O2SAT 99
--- NOTE | 2017-06-09 07:14 | Anesthesiology Progress Note ---
Anesthesia Post Op Note Date & Time Jun 09, 2017 at 07:14 Vital Signs Pain Intensity: 2.0 Vital Signs Past 12 Hours Date Time Temp Pulse Resp B/P (MAP) Pulse Ox O2 Delivery O2 Flow Rate FiO2 06/09/17 07:03 36.5 56 18 115/70 (85) 99 Room Air 06/08/17 23:13 36.6 57 14 132/75 (94) 98 Room Air 06/08/17 20:01 Room Air Notes Mental Status: alert / awake / arousable, participated in evaluation Pt Amnestic to Procedure: Yes Nausea / Vomiting: adequately controlled Pain: adequately controlled Airway Patency, RR, SpO2: stable & adequate BP & HR: stable & adequate Hydration State: stable & adequate Anesthetic Complications: no major complications apparent
[2017-06-09] MEDS: D5W AND 1/2NSS + 20MEQ KCL 1,000 ML IV SCH (07:34)
[2017-06-09] MEDS: VANCOMYCIN INJ 1,750 MG in SODIUM CHLORIDE 0.9% 500ML 500 ML IV SCH (07:34)
[2017-06-09] MEDS: MULTIVITAMIN TAB PO SCH (09:48)
[2017-06-09] MEDS: DOCUSATE SODIUM 100 MG CAP PO SCH (09:48)
[2017-06-09] MEDS: ASPIRIN 325 MG ECTAB PO SCH (09:48)
[2017-06-09] MEDS: PANTOprazole SOD 40 MG TAB PO SCH (09:48)
--- NOTE | 2017-06-09 10:23 | Orthopedic Progress Note ---
Orthopedic Progress Note Date of Service Jun 09, 2017. Subjective Post OP Day: 3 Reports: feeling well, pain controlled w PO medications, Denies: complaints, nausea / vomiting Objective calves soft nontender, N/V intact, dressing C/D/I, incision C/D/I, A&O x3, toes mobile Date Time Temp Pulse Resp B/P (MAP) Pulse Ox O2 Delivery O2 Flow Rate FiO2 06/09/17 07:30 Room Air 06/09/17 07:03 36.5 56 18 115/70 (85) 99 Room Air 06/08/17 23:13 36.6 57 14 132/75 (94) 98 Room Air 06/08/17 20:01 Room Air 06/08/17 16:30 Room Air 06/08/17 15:12 36.7 69 18 128/74 (92) 98 Room Air Laboratory Results 24 Hours: 06/08/17 05:52 06/08/17 05:52 Test 06/08/17 05:52 06/08/17 15:19 Red Blood Count 4.15 M/uL (4.7-6.1) Mean Corpuscular Volume 86.0 fL (80-100) Mean Corpuscular Hemoglobin 28.4 pg (25-34) Mean Corpuscular Hemoglobin Concent 33.1 g/dl (32-36) RDW Standard Deviation 40.4 fL (36.4-46.3) RDW Coefficient of Variation 12.8 % (11.5-14.5) Mean Platelet Volume 10.5 fL (7.4-10.4) Anion Gap 6.0 mmol/L (3-11) Est Creatinine Clear Calc Drug Dose 193.8 ml/min Estimated GFR () > 150.0 Estimated GFR (Non- 132.9 BUN/Creatinine Ratio 8.3 (10-20) Calcium Level 8.0 mg/dl (8.5-10.1) Vancomycin Level Trough 18.7 mcg/ml (SEE COMMENT) Date/Time Source Procedure Growth Status 06/06/17 00:00 Drainage-Deep Leg Gram Stain - Final Resulted 06/06/17 00:00 Bacterial Culture - Preliminary Staphylococcus Aureus Resulted Assessment & Plan Assessment: POD # 2 s/p I&D LLE, for S. Aureus infection, doing as well as expected. Plan: Continue IV Vanco for now per Pharmacy. Appreciate ID input. Will follow labs. Dressing changed 06/09/17. D/C HVAC 06/08/2017. WBAT. PT/OT. Regular diet. Continue pain control. DVT prophylaxis: TEDs, foot pumps, ASA. D/C planning. I, Dr. Heaton, saw and examined the patient and discussed the management with the fellow. I reviewed the fellows note and agree with the documented findings and the plan of care we developed. After talking directly with Dr. Llanos, the Staph aureus is susceptible to Bactrim which she would like to continue him on for 2 weeks. He will follow-up with Dr. Llanos in 2 weeks. He will follow-up in my office later this week.
--- NOTE | 2017-06-09 10:29 | Discharge Instructions ---
Discharge Instructions Date of Service Jun 09, 2017. Admission Reason for Admission: Left Tibial Infection Discharge Discharge Diagnosis / Problem: Left tibia infection Discharge Goals Goal(s): Decrease discomfort, Improve function, Increase independence, Improve disease control Activity Recommendations Activity Limitations: as noted below Lifting Limitations: until after follow-up appointment Exercise/Sports Limitations: until after follow-up appointment Shower/Bathe: keep incision dry Driving or Machine Use: when cleared by Dr. Heaton Weightbearing Status: Left weightbearing (as tolerated) . Instructions / Follow-Up Instructions / Follow-Up DIET: * Resume previous diet. MEDICATIONS: * Please take your prescriptions as instructed at your pre-op appointment and/ or see medication discharge instructions listed above. * If concerns develop, call your physician's office at . SPECIAL CARE INSTRUCTIONS: * Ice/Elevate as instructed. * Keep dressing clean, dry, intact. * Your surgical extremity may be discolored due to prepping agents used on the skin. A bluish-green tint is a normal variant and should not cause alarm. Call your doctor at [phone] if: * Temperature above 101 degrees * Pain not relieved by pain medicine ordered * There is increased drainage or redness from any incision * You have any unanswered questions, problems or concerns. FOLLOW UP VISIT: * If not already scheduled, please call the office at to schedule a follow-up appointment. Current Hospital Diet Patient's current hospital diet: Regular Diet Discharge Diet Recommended Diet: Regular Diet Procedures Procedures Performed: Irrigation and Debridement Left Lower Leg Pending Studies Studies pending at discharge: no Medical Emergencies . Who to Call and When: Medical Emergencies: If at any time you feel your situation is an emergency, please call 911 immediately. . Non-Emergent Contact Non-Emergency issues call your: Primary Care Provider . "Provider Documentation" section prepared by Kendrick Garcia. . VTE Core Measure Inpt VTE Proph given/why not?: Other Anticoagulation (Aspirin 325mg BID x 3 weeks ), T.ESenait Stockings, SCD's [place] Drug Monitoring Program Search Results: no issues identified
[2017-06-09] MEDS ORDERED: SULF800T23 PO (10:32)
[2017-06-09] MEDS ORDERED: OXYC-57 PO (10:34)
--- NOTE | 2017-06-09 10:42 | Discharge Summary ---
Orthopedic Discharge Summary Admission Date/Reason Jun 06, 2017 at 14:40 Left Tibial Infection. Discharge Date/Disposition Jun 09, 2017 Home Diagnosis Principal Diagnosis: left tibia infection Secondary Diagnoses/Problems: s/p I&D left tibia Procedure(s) Performed I&D left tibia Consultations Infectious Disease - Dr. Llanos Medication Reconciliation New Medications: Oxycodone/Acetaminophen 5MG/325MG (Percocet 5MG/325MG) Tab 1-2 TABLETS PO Q4H PRN for Pain, #30 TAB Sulfamethoxazole-Trimethoprim (Bactrim Ds 800MG/160MG) 1 Tab Tab 1 TAB PO BID for 14 Days, #28 TAB Continued Medications: Aspirin (Aspirin) 325 Mg Tab 325 MG PO Q12 for 21 Days Admission Physical Exam As per Admitting History & Physical. Hospital Course 26 y/o male with left tibia infection, had an aspiration by Dr. Heaton from [facility] of the left tibia that grew Staph Aureus. Surgery scheduled for Friday06/06/17 for an I&D of the left tibia. He tolerated the procedure well and after further evaluation by Orthopedics and Infectious Disease, the patient was able to be discharged home with oral antibiotics and pain medication. He will follow-up with Dr. Llanos's office in 2 weeks and with Orthopedics in 1 week. Discharge Instructions Please refer to the electronic Patient Visit Report (Discharge Instructions) for additional information. Additional Copies To Terrance Llanos MD
[2017-06-09 11:38] VITALS: BP 115/70; PULSE 56; TEMP 36.5; O2SAT 99
[2017-06-10] MEDS ORDERED: VANCOMYCIN TROUGH ONE (07:30)
== END 2017-06-09 12:45 | disposition home or self-care (01) | DRG 572 ==
LOC: C.MSW 14:40
PROVIDERS: ADMIT Orthopaedic Surgery Sports Medicine; ATTEND Orthopaedic Surgery Sports Medicine
PROC: 0JDP0ZZ Extraction of Left Lower Leg Subcutaneous Tissue and Fascia, Open Approach (ICD-10-PCS; principal; 2017-06-06 11:15)
PROC: 0JBP0ZZ Excision of Left Lower Leg Subcutaneous Tissue and Fascia, Open Approach (ICD-10-PCS; principal; 2017-06-06 11:15)
DX: L02.416 Cutaneous abscess of left lower limb (principal); B95.61 Methicillin susceptible Staphylococcus aureus infection as the cause of diseases classified elsewhere; J45.909 Unspecified asthma, uncomplicated; E66.9 Obesity, unspecified; Z68.32 Body mass index [BMI] 32.0-32.9, adult; Z79.82 Long term (current) use of aspirin

== ENCOUNTER → 2017-06-06 | Outpatient (CLI) | payer OTHER ==
--- NOTE | 2017-06-06 12:59 | DIAGNOSTIC IMAGING REPORT ---
LEFT TIBIA/FIBULA 2 VIEWS CLINICAL HISTORY: LEFT LOWER LEG SWELLING pain. Edema. COMPARISON: 06/05/2017 DISCUSSION: Considerable pretibial soft tissue edema. Apparent air within the soft tissues. This raises the possibility of an penetrating injury, necrotizing fasciitis, or air producing infection. The osseous structures appear to be intact within limitations of mild patient motion. IMPRESSION: 1. Considerable soft tissue swelling in a peritubular distribution 2. Air within the soft tissues raising the possibility of either penetrating type injury, air producing infection, versus Necrotizing fasciitis. 3. Follow-up is indicated The above report was generated using voice recognition software. It may contain grammatical, syntax or spelling errors. Electronically signed by: Yovani Hendrickson M.D. 06/06/2017 12:58 PM Dictated Date/Time: 06/06/2017 12:54 PM
[2017-06-06 14:51] VITALS: BP 150/76; PULSE 68; TEMP 36.5; O2SAT 99
== END | disposition home or self-care (01) ==
LOC: C.RDSM 06-05 12:32
PROVIDERS: ATTEND Physician Assistant
DX: M79.89 Other specified soft tissue disorders (principal)

== ENCOUNTER → 2017-07-10 | Outpatient (CLI) | payer OTHER ==
[~2017-07-10] MED LIST changes: +GADAVIST IV PRN; +OXYC-57 PO
--- NOTE | 2017-07-10 17:12 | DIAGNOSTIC IMAGING REPORT ---
L LOWER EXT NONJOINT COMBO CLINICAL HISTORY: 26 years-old Male presenting with L LEG SWELLING, INFECTION, injury in May 08, 2016 on jungle gym, swelling and history of infection, 2 previous irrigations and debridement of lower leg in October 2016 and May 2017, marker placed at location of incision/swelling. TECHNIQUE: Multisequence, multiplanar MR imaging of the left lower leg was performed before and after the administration of intravenous contrast. IV contrast: 10 L of Gadavist. COMPARISON: 07/23/2016. FINDINGS: Localizer images: Unremarkable. A marker was placed on the skin at site of palpable abnormality. Elongated pretibial fluid collection along the superficial aspect of the fascia extending along the anterolateral aspect superficial to the anterior compartment. This is overall decrease in size from prior. Maximal axial dimensions of this collection now measure 7 mm in thickness and approximately 9 cm in width and approximately 15 cm in length, although the crescentic configuration makes it difficult to measure. This collection is T1 hypointense and T2 hyperintense and demonstrates rim enhancement on postcontrast imaging. Associated superficial subcutaneous edema along the anterior lower leg. The subjacent musculature and bone marrow edema is preserved with normal signal intensity. IMPRESSION: Slight interval decrease in volume of the crescentic elongated superficial fluid collection in the anterolateral left lower leg. This could be consistent with an abscess. No associated osteomyelitis or myositis. Surrounding superficial subcutaneous edema suggests cellulitis. Electronically signed by: Mathieu Pavon M.D. 07/10/2017 5:10 PM Dictated Date/Time: 07/10/2017 5:02 PM
== END | disposition home or self-care (01) ==
LOC: C.MRI 15:28
PROVIDERS: ATTEND Orthopaedic Surgery Sports Medicine
DX: Z09 Encounter for follow-up examination after completed treatment for conditions other than malignant neoplasm (principal); M79.89 Other specified soft tissue disorders